=== PATIENT | female | born 1960 | race Caucasian/White ===

== ENCOUNTER → 2017-03-23 | Outpatient (CLI) | payer BC ==
--- NOTE | 2017-03-23 11:48 | REPMRS ---
Patient History The patient states she had a clinical breast exam in 03/18 No known family history of cancer. Digital Woman Screen Mammo: March 23, 2017 - Exam #: [id number] Bilateral CC and MLO view(s) were taken. Technologist: Ciera Shannon, Technologist Prior study comparison: March 21, 2016, digital woman screen mammo performed at [facility]. March 21, 2015, digital woman screen mammo performed at [facility] to [facility]. March 21, 2014, digital woman screen mammo performed at [facility] to [facility]. FINDINGS: There are scattered fibroglandular densities. There has been no change in the appearance of the mammogram from the prior studies. There is a mild amount of scattered fibroglandular density which is fairly symmetric. There is no interval development of dominant mass, architectural distortion, or clustered microcalcification suggestive of malignancy. ASSESSMENT: BI-RADS/ACR category 1 mammogram. Negative. Recommendation Routine screening mammogram in 1 year (for women over age 40). This mammogram was interpreted with the aid of an FDA-approved computer-aided dectection system. Electronically Signed By: Manuel Slaughter MD 03/23/17 1229
== END ==
LOC: M WHC 10:04
PROVIDERS: ATTEND Nurse Practitioner Women's Health
DX: Z12.31 Encounter for screening mammogram for malignant neoplasm of breast (principal)

== ENCOUNTER → 2017-04-02 | Outpatient (CLI) | payer BC ==
--- NOTE | 2017-04-03 03:11 | REP ---
Clinical: Pelvic pain with history of prior hysterectomy . Technique: Transabdominal pelvic ultrasound followed by transvaginal examination for better evaluation of the endometrium and adnexa with color Doppler evaluation of the ovaries. Findings: Bladder is unremarkable and measures 10.0 x 8.7 x 9.6 cm . No pelvic fluid or mass lesions are appreciated. Ovaries not visualized. Impression: 1. No obvious pelvic abnormality. 2. Ovaries not visualized. Signed by Marcos Soni MD 04/03/2017 03:03 A
== END ==
LOC: M WHC 12:33
PROVIDERS: ATTEND Nurse Practitioner Women's Health
DX: R10.2 Pelvic and perineal pain (principal)

== ENCOUNTER → 2017-06-30 | Outpatient (CLI) | payer BC ==
--- NOTE | 2017-06-30 11:25 | REP ---
CT IACS WITHOUT CONTRAST: HISTORY: Otosclerosis. The internal auditory canals, cochlea, vestibules and semicircular canals are normal in appearance. The ossicles are normal in configuration and position. The scutum is intact. There are areas of dehiscence in the tegmen bilaterally. The middle ear cavities and mastoid air cells are clear. The visualized sinuses are clear. The nasopharynx is normal in appearance. IMPRESSION: Normal CT IACs. Signed by Sandro Morfin MD 06/30/2017 11:31 A
== END ==
LOC: M RAD 10:38
PROVIDERS: ATTEND Specialist
DX: H80.23 Cochlear otosclerosis, bilateral (principal)

== ENCOUNTER → 2018-03-23 | Outpatient (CLI) | payer BC | LOC: M WHC 10:16 | DX: Z12.31 Encounter for screening mammogram for malignant neoplasm of breast (principal) ==

== ENCOUNTER 2018-06-18 10:55 | Day surgery (SDC) | payer BC ==
[2018-06-18] MEDS ORDERED: PROPOFOL 200 MG/20 ML VIAL As Ordered (11:39)
[2018-06-18] MEDS ORDERED: LIDOCAINE 2% INJ 100 MG/5 ML SDV (FOR ANES.) As Ordered (11:39)
[2018-06-18] MEDS ORDERED: fentaNYL 100 MCG/2 ML INJECTION (J3010) As Ordered (11:40)
[2018-06-18] MEDS ORDERED: NS 1,000 ML IV (12:00)
== END 2018-06-18 13:41 | disposition home or self-care (01) ==
LOC: M OPP 10:55
DX: Z12.11 Encounter for screening for malignant neoplasm of colon (principal); Z86.010 Personal history of colon polyps; K64.8 Other hemorrhoids; K22.70 Barrett's esophagus without dysplasia; K22.8 Other specified diseases of esophagus; K44.9 Diaphragmatic hernia without obstruction or gangrene; K21.9 Gastro-esophageal reflux disease without esophagitis; R12 Heartburn; F41.9 Anxiety disorder, unspecified; F32.9 Major depressive disorder, single episode, unspecified; F42.9 Obsessive-compulsive disorder, unspecified; M54.9 Dorsalgia, unspecified; R32 Unspecified urinary incontinence; Z79.899 Other long term (current) drug therapy; Z91.048 Other nonmedicinal substance allergy status; Z80.51 Family history of malignant neoplasm of kidney
CPT/HCPCS: G0105

== ENCOUNTER → 2019-03-01 | Outpatient (REF) | payer BC ==
[~2019-03-01] MED LIST: CALCTAB41 PO; QUET1TAB7 PO; SERT-138 PO
[2019-03-01 19:12] LABS: APPEARANCE, URINE CLEAR (CLEAR); BACTERIA, URINE AUTO NEGATIVE (NEGATIVE); BILIRUBIN, URINE AUTO NEGATIVE (NEGATIVE); BLOOD, URINE BLOOD NEGATIVE (NEGATIVE); COLOR, URINE STRAW (YELLOW); GLUCOSE, URINE (UA) AUTO NEGATIVE (NEGATIVE); KETONE, URINE AUTO NEGATIVE (NEGATIVE); LEUKOCYTE ESTERASE, URINE AUTO NEGATIVE (NEGATIVE); NITRITE, URINE AUTO NEGATIVE (NEGATIVE); PROTEIN, URINE AUTO NEGATIVE (NEGATIVE); RBC, URINE AUTO 0 /HPF (0-3); SPECIFIC GRAVITY URINE AUTO 1.009 (1.002-1.035); SQUAMOUS EPITHELIAL CELL UR AU 0 /HPF (0-6); UROBILINOGEN, URINE AUTO 0.2 mg/dL (0.0-2.0); WBC, URINE AUTO 0 /HPF (0-3)
== END ==
LOC: M SMT 17:19
PROVIDERS: ATTEND Nurse Practitioner Women's Health
DX: R31.29 Other microscopic hematuria (principal)

== ENCOUNTER → 2019-03-16 | Outpatient (CLI) | payer BC ==
[~2019-03-16] MED LIST changes: +ISOVUE-370 76% 100ML VIAL (Q9967) As Ordered ONE
--- NOTE | 2019-03-17 06:23 | REP ---
Clinical: Microscopic hematuria. Technique: Axial precontrast, contrast enhanced, and delayed images of the abdomen and pelvis using 100 ml Isovue 370 intravenous contrast material with coronal and sagittal re-formations as well as 3-D CT urogram. Comparison: 02/14/2015 Findings: Evaluation of the urinary check system demonstrates no hydroureteronephrosis, perinephric stranding, intrarenal or obstructing ureteral calculi. Kidneys demonstrate symmetric parenchymal enhancement and no obvious cystic or mass lesions. Collecting system appears normal. Liver, spleen, pancreas, gallbladder, and bilateral adrenal glands are normal. The enteric system is without obstruction or acute inflammatory process. Few scattered colonic diverticula noted. Pelvis demonstrates normal bladder and evidence of prior hysterectomy. No ascites. No free air. No intraperitoneal or retroperitoneal adenopathy. Musculoskeletal structures are intact without focal osseous abnormality. Degenerative changes of the lower lumbosacral spine noted. Impression: 1. Normal appearance to the urinary tract system. 2. No acute abdominopelvic pathology appreciated. Electronically Signed by Marcos Soni MD 03/17/2019 06:15 A
== END ==
LOC: M RAD 10:03
PROVIDERS: ATTEND Nurse Practitioner Women's Health
DX: R31.29 Other microscopic hematuria (principal)
CPT/HCPCS: 74178; Q9967

== ENCOUNTER → 2019-04-06 | Outpatient (REF) | payer BC ==
[~2019-04-06] MED LIST changes: -ISOVUE-370 76% 100ML VIAL (Q9967) As Ordered ONE
[2019-04-06 13:49] LABS: APPEARANCE, URINE CLEAR (CLEAR); BACTERIA, URINE AUTO NEGATIVE (NEGATIVE); BILIRUBIN, URINE AUTO NEGATIVE (NEGATIVE); BLOOD, URINE BLOOD NEGATIVE (NEGATIVE); COLOR, URINE YELLOW (YELLOW); GLUCOSE, URINE (UA) AUTO NEGATIVE (NEGATIVE); KETONE, URINE AUTO NEGATIVE (NEGATIVE); LEUKOCYTE ESTERASE, URINE AUTO NEGATIVE (NEGATIVE); NITRITE, URINE AUTO NEGATIVE (NEGATIVE); PROTEIN, URINE AUTO NEGATIVE (NEGATIVE); RBC, URINE AUTO 0 /HPF (0-3); SPECIFIC GRAVITY URINE AUTO 1.014 (1.002-1.035); SQUAMOUS EPITHELIAL CELL UR AU 0 /HPF (0-6); UROBILINOGEN, URINE AUTO 0.2 mg/dL (0.0-2.0); WBC, URINE AUTO 0 /HPF (0-3)
== END ==
LOC: M SMT 13:11
PROVIDERS: ATTEND Urology
DX: R31.29 Other microscopic hematuria (principal)

== ENCOUNTER 2019-09-17 11:31 | Emergency (ER) | payer BC ==
[~2019-09-17] VITALS: Ht 167.6 cm; Wt 77.3 kg
[2019-09-17] MEDS ORDERED: ALPR0.25 (11:37)
[2019-09-17 12:31] LABS: HEMOGLOBIN 14.3 g/dl (12.0-15.5); MEAN CORPUSCULAR HEMOGLOBIN 31.4 pg (27.0-33.0); MEAN CORPUSCULAR HGB CONC 31.8 g/dl (32.0-36.5); MEAN CORPUSCULAR VOLUME 98.9 fl (80.0-96.0); PLATELET COUNT, AUTOMATED 281 10^3/uL (150-450); RED BLOOD COUNT 4.55 10^6/uL (4.00-5.40)
[2019-09-17] MEDS ORDERED: ONDANSETRON 4 MG ORAL DISINTEGRATING TAB (Q0162 PER 1MG) PO ONE (13:00)
[2019-09-17 13:03] LABS: ALBUMIN 4.1 GM/DL (3.2-5.2); ALT/SGPT 19 U/L (12-78); BILIRUBIN,DIRECT < 0.1 MG/DL (0.0-0.2); BILIRUBIN,TOTAL 0.4 MG/DL (0.2-1.0); BLOOD UREA NITROGEN 12 MG/DL (7-18); CALCIUM LEVEL 9.6 MG/DL (8.5-10.1); CARBON DIOXIDE LEVEL 31 MEQ/L (21-32); CHLORIDE LEVEL 107 MEQ/L (98-107); CREATININE FOR GFR 0.76 MG/DL (0.55-1.30); ETHYL ALCOHOL (ETHANOL) < 0.003 % (0.000-0.010); GLOMERULAR FILTRATION RATE > 60.0 (>51); GLUCOSE, FASTING 103 MG/DL (70-100); POTASSIUM SERUM 4.4 MEQ/L (3.5-5.1); SALICYLATE LEVEL < 1.7 MG/DL (5.0-30.0); SODIUM LEVEL 143 MEQ/L (136-145); TOTAL PROTEIN 7.6 GM/DL (6.4-8.2)
[2019-09-17 13:04] LABS: ACETAMINOPHEN LEVEL < 2.0 UG/ML (10.0-30.0); AMPHETAMINES LEVEL URINE NEGATIVE (NEGATIVE); BARBITURATES URINE NEGATIVE (NEGATIVE); BENZODIAZEPINES URINE POSITIVE (NEGATIVE); CANNABINOIDS URINE NEGATIVE (NEGATIVE); COCAINE METABOLITE URINE NEGATIVE (NEGATIVE); METHADONE URINE NEGATIVE (NEGATIVE); OPIATES URINE NEGATIVE (NEGATIVE); PHENCYCLIDINE URINE NEGATIVE (NEGATIVE)
[2019-09-17 14:53] VITALS: BP 136/73
== END 2019-09-17 14:59 | disposition home or self-care (01) ==
LOC: M ED 11:31
DX: F33.9 Major depressive disorder, recurrent, unspecified (principal); T50.995A Adverse effect of other drugs, medicaments and biological substances, initial encounter; X58.XXXA Exposure to other specified factors, initial encounter; Y92.89 Other specified places as the place of occurrence of the external cause; K21.9 Gastro-esophageal reflux disease without esophagitis; Z79.899 Other long term (current) drug therapy; Z91.048 Other nonmedicinal substance allergy status
CPT/HCPCS: 36415; 80048; 80076; 80307; 84443; 85027; 99284; G0480; Q0162

== ENCOUNTER → 2020-03-23 | Outpatient (CLI) | payer BC ==
[~2020-03-23] MED LIST changes: +ALPR0.25
--- NOTE | 2020-03-23 11:27 | REPMRS ---
Patient History The patient states she had a clinical breast exam in March 2020. No known family history of cancer. Digital Woman Screen Mammo: March 23, 2020 - Exam #: [id number] Bilateral CC and MLO view(s) were taken. Technologist: Haylee Schmidt, Technologist Prior study comparison: March 21, 2019, bilateral digital woman screen mammo performed at [facility]. March 23, 2018, digital woman screen mammo performed at [facility]. March 23, 2017, digital woman screen mammo performed at [facility]. FINDINGS: There are scattered fibroglandular densities. The Volpara volumetric breast density category is:B. There has been no change in the appearance of the mammogram from the prior studies. There is a mild amount of scattered fibroglandular density which is fairly symmetric. There is no interval development of dominant mass, architectural distortion, or grouped microcalcification suggestive of malignancy. 3-D tomosynthesis shows no additional findings. Assessment: BI-RADS/ACR category 1 mammogram. Negative Mammogram. Recommendation Routine screening mammogram of both breasts in 1 year (for women over age 40). This patient's Lifetime Breast Cancer Risk is estimated at 6.6 %. This mammogram was interpreted with the aid of an FDA-approved computer-aided dectection system. Electronically Signed By: Manuel Slaughter MD 03/23/20 3802
== END ==
LOC: M WHC 10:06
PROVIDERS: ATTEND Nurse Practitioner Women's Health
DX: Z12.31 Encounter for screening mammogram for malignant neoplasm of breast (principal)

== ENCOUNTER → 2021-03-21 | Outpatient (CLI) | payer BC ==
[~2021-03-21] MED LIST changes: -QUET1TAB7 PO; +QUET25TA3 PO
--- NOTE | 2021-03-21 11:29 | REPMRS ---
Patient History The patient states she had a clinical breast exam on 03-21-2021. No known family history of cancer. No Hormone Replacement Therapy Patient states no breast complaints today. Patient has signed MRS History Sheet. Digital Woman Screen Mammo: March 21, 2021 - Exam #: [id number] Bilateral CC and MLO view(s) were taken. Technologist: Missy Khan, Bakery Technician Prior study comparison: March 23, 2020, bilateral digital woman screen mammo performed at [facility]. March 21, 2019, bilateral digital woman screen mammo performed at [facility]. March 23, 2018, digital woman screen mammo performed at [facility]. FINDINGS: The breast tissue is almost entirely fat. The Volpara volumetric breast density category is: A. There has been no change in the appearance of the mammogram from the prior studies. There is no interval development of dominant mass, architectural distortion, or grouped microcalcification typical of malignancy. 3-D tomosynthesis shows no additional findings. Assessment: BI-RADS/ACR category 1 mammogram. Negative Mammogram. Recommendation Routine screening mammogram of both breasts in 1 year (for women over age 40). This patient's [facility] Lifetime Breast Cancer RIsk is estimated at 6.4 %. This mammogram was interpreted with the aid of an FDA-approved computer-aided dectection system. Electronically Signed By: Manuel Slaughter MD 03/21/21 1122
== END ==
LOC: M WHC 09:57
PROVIDERS: ATTEND Nurse Practitioner Women's Health
DX: Z12.31 Encounter for screening mammogram for malignant neoplasm of breast (principal)

== ENCOUNTER 2021-10-31 18:15 | Emergency (ER) | payer BC ==
[~2021-10-31] VITALS: Ht 167.6 cm; Wt 77.6 kg
[~2021-10-31 18:15] MED LIST changes: +QUET1TAB17 PO; -QUET25TA3 PO
[2021-10-31] MEDS ORDERED: ONDANSETRON 4MG/2ML VIAL IV ONE (22:00)
[2021-10-31] MEDS ORDERED: MORPHINE 2 MG/ML 1ML VIAL (J2270) IV ONE (22:00)
[2021-10-31 22:28] LABS: BASO % 0.3 % (0.0-1.0); EOS # 0.1 10^3/uL (0.0-0.5); EOS % 0.6 % (0.0-3.0); HEMATOCRIT 41.4 % (36.0-47.0); HEMOGLOBIN 13.5 g/dl (12.0-15.5); LYMPH # 3.4 10^3/uL (1.5-5.0); LYMPH % 42.7 % (24.0-44.0); MEAN CORPUSCULAR HGB CONC 32.6 g/dl (32.0-36.5); MONO # 0.4 10^3/uL (0.0-0.8); MONO % 5.6 % (2.0-8.0); NEUTROPHILS % 50.3 % (36.0-66.0); PLATELET COUNT, AUTOMATED 339 10^3/uL (150-450); RED BLOOD COUNT 4.36 10^6/uL (4.00-5.40); WHITE BLOOD COUNT 7.9 10^3/uL (4.0-10.0)
[2021-10-31] MEDS ORDERED: ISOVUE-370 76% 100ML VIAL As Ordered ONE (22:35)
[2021-10-31 23:01] LABS: ALBUMIN 4.1 GM/DL (3.2-5.2); BILIRUBIN,DIRECT 0.1 MG/DL (0.0-0.2); BILIRUBIN,TOTAL 0.6 MG/DL (0.2-1.0); TOTAL PROTEIN 7.6 GM/DL (6.4-8.2)
[2021-10-31] MEDS ORDERED: METOCLOPRAMIDE INJ 10MG/2ML VIAL (J2765 PER 1) IV ONE (23:45)
--- NOTE | 2021-11-01 00:02 | REPVR ---
PROCEDURE INFORMATION: Exam: CT Abdomen And Pelvis With Contrast Exam date and time: 10/31/2021 10:49 PM Age: 61 years old Clinical indication: Abdominal pain; Generalized TECHNIQUE: Imaging protocol: Computed tomography of the abdomen and pelvis with contrast. Radiation optimization: All CT scans at this facility use at least one of these dose optimization techniques: automated exposure control; mA and/or kV adjustment per patient size (includes targeted exams where dose is matched to clinical indication); or iterative reconstruction. Contrast material: ISOVUE 370; Contrast volume: 100 ml; Contrast route: INTRAVENOUS (IV); COMPARISON: CT ABD PELVIS W/O FOL BY WIT 03/16/2019 10:23 AM FINDINGS: Lungs: Minimal right base fibro-atelectatic change. Liver: The liver attenuation is 74 Hounsfield units and the spleen is 133 Hounsfield units. Gallbladder and bile ducts: Normal. No calcified stones. No ductal dilation. Pancreas: Normal. No ductal dilation. Spleen: The spleen is unremarkable. Adrenal glands: Normal. No mass. Kidneys and ureters: Normal. No hydronephrosis. Stomach and bowel: Unremarkable. No obstruction. No mucosal thickening. Appendix: A normal small appendix is seen. Intraperitoneal space: Unremarkable. No free air. No significant fluid collection. Vasculature: Unremarkable. No abdominal aortic aneurysm. Lymph nodes: Unremarkable. No enlarged lymph nodes. Urinary bladder: Unremarkable as visualized. Reproductive: Status post hysterectomy. Bones/joints: Unremarkable. No acute fracture. Soft tissues: Unremarkable. IMPRESSION: 1. Fatty infiltration of the liver. 2. Status post hysterectomy. 3. Otherwise negative CT abdomen/pelvis which is similar to 03/16/2019. Electronically signed by: Peter Hawkins On 11/01/2021 00:02:04 AM
[2021-11-01] MEDS ORDERED: PANTOPRAZOLE 40MG VIAL (C9113 PER 1) IV ONE (01:10)
[2021-11-01] MEDS ORDERED: ONDA4TAB6 PO (02:38)
[2021-11-01] MEDS ORDERED: ATOR1TAB21 PO (02:38)
[2021-11-01] MEDS ORDERED: FAMO40TA3 PO (02:38)
[2021-11-01] MEDS ORDERED: SERT25TA85 PO (02:38)
[2021-11-01] MEDS ORDERED: TRAZ-252 PO (02:38)
[2021-11-01] MEDS ORDERED: WELLTAB38 PO (02:38)
[2021-11-01] MEDS ORDERED: PROT1TAB2 PO (02:44)
[2021-11-01 03:05] VITALS: BP 124/57
--- NOTE | 2021-11-02 07:42 | ECGEPIP ---
[facility] - ED Test Date: 2021-10-31 Pat Name: LISSETTE HICKS Department: Room: - Gender: Female [employer]: : 1960 Requested By: ANA CRISTINA PETER Order Number: [id number] Reading MD: Gauri Freeman Measurements Intervals [place] Rate: 70 P: 44 NV: 138 QRS: 37 QRSD: 94 T: 32 QT: 396 QTc: 427 Interpretive Statements Normal sinus rhythm similar 08/29/15 Electronically Signed on 11-02-2021 7:42:09 EST by Gauri Freeman
== END 2021-11-01 03:07 | disposition home or self-care (01) ==
LOC: M ED 18:15
DX: R10.13 Epigastric pain (principal); K21.9 Gastro-esophageal reflux disease without esophagitis; F41.9 Anxiety disorder, unspecified; F32.9 Major depressive disorder, single episode, unspecified; K76.0 Fatty (change of) liver, not elsewhere classified; Z91.89 Other specified personal risk factors, not elsewhere classified
CPT/HCPCS: 74177; 80047; 80076; 83690; 84484; 85025; 93005; 93041; 96374; 96375; 99285; C9113; J2270; J2405; J2765; Q9967

== ENCOUNTER → 2022-02-17 | Outpatient (CLI) | payer BC ==
[~2022-02-17] MED LIST changes: +ARIP10TA32 PO; +ATOR1TAB21 PO; +CLON1TAB8 PO; +FAMO40TA3 PO; +FLUO40CA PO; +MIRA3350 PO; +ONDA4TAB6 PO; +PROT1TAB2 PO; +SERT25TA85 PO; +TRAM50TA2 PO; +TRAZ-252 PO; +WELLTAB38 PO
== END ==
LOC: M LABSMTC 10:02
PROVIDERS: ATTEND Anesthesiology
DX: Z11.52 Encounter for screening for COVID-19 (principal); Z20.822 Contact with and (suspected) exposure to COVID-19

== ENCOUNTER → 2022-03-20 | Outpatient (CLI) | payer BC | LOC: M WHC 10:10 | PROVIDERS: ATTEND Advanced Practice Midwife | DX: Z12.31 Encounter for screening mammogram for malignant neoplasm of breast (principal) ==

== ENCOUNTER → 2023-03-25 | Outpatient (CLI) | payer BC | LOC: M WHC 09:12 | PROVIDERS: ATTEND Advanced Practice Midwife | DX: Z12.31 Encounter for screening mammogram for malignant neoplasm of breast (principal) ==

== ENCOUNTER → 2024-03-23 | Outpatient (CLI) | payer BC | LOC: M WHC 13:48 | PROVIDERS: ATTEND Advanced Practice Midwife | DX: Z12.31 Encounter for screening mammogram for malignant neoplasm of breast (principal); R92.313 Mammographic fatty tissue density, bilateral breasts ==

== ENCOUNTER 2025-05-29 11:29 | Day surgery (SDC) | payer BC ==
[~2025-05-29] VITALS: Ht 167.6 cm; Wt 92.8 kg
[~2025-05-29 11:29] MED LIST changes: -ARIP10TA32 PO; +ARIP10TA63 PO; +ONDA-282 PO; -ONDA4TAB6 PO; +PANT20TA6 PO; +SERT50TA29 PO
[2025-05-29 14:06] VITALS: TEMP 97.3
[2025-05-29 14:21] VITALS: BP 129/56; O2SAT 96
== END 2025-05-29 14:33 | disposition home or self-care (01) ==
LOC: M OPP 11:29
PROVIDERS: ATTEND Internal Medicine Gastroenterology
DX: K63.5 Polyp of colon (principal); K57.30 Diverticulosis of large intestine without perforation or abscess without bleeding; K64.8 Other hemorrhoids; Z86.0100 Personal history of colon polyps, unspecified; K22.89 Other specified disease of esophagus; K44.9 Diaphragmatic hernia without obstruction or gangrene; K22.70 Barrett's esophagus without dysplasia; Z91.048 Other nonmedicinal substance allergy status; Z79.899 Other long term (current) drug therapy